=== PATIENT | male | born 1985 | race Caucasian/White ===

== ENCOUNTER 2016-08-07 20:15 | Emergency (ER) | payer OTHER ==
[2016-08-07 20:42] VITALS: BP 123/91; PULSE 99; RESP 18; TEMP 98.6; O2SAT 96
--- NOTE | 2016-08-07 21:01 | EDPHY ---
H & P Stated Complaint: left shoulder injury- poss dislocation HPI/ROS: HPI CHIEF COMPLAINT: Left shoulder injury HISTORY OF PRESENT ILLNESS: This patient very pleasant 31-year-old male presents emergency room with left shoulder pain and swelling. Patient states he was playing ultimate Frisbee he went out for the outstretched left hand to catch a Frisbee and developed left shoulder pain. Denies any other areas of trauma. This patient has tenderness palpation over the left AC joint. Distally neurovascular intact good cap refill, good escrow manager strength, good pulse. Past Medical History: No medical history Past Surgical History: No surgical history Social History: Denies daily use of drugs alcohol tobacco products Family History: Noncontributory ROS REVIEW OF SYSTEMS: A comprehensive 10 point review of systems is otherwise negative aside from elements mentioned in the history of present illness. Exam Constitutional triage nursing summary reviewed, vital signs reviewed, awake/ alert. Eyes normal conjunctivae and sclera, EOMI, PERRLA. HENT normal inspection, atraumatic, moist mucus membranes, no epistaxis, neck supple/ no meningismus, no raccoon eyes. Respiratory clear to auscultation bilaterally, normal breath sounds, no respiratory distress, no wheezing. Cardiovascular rate normal, regular rhythm, no murmur, no edema, distal pulses normal. Gastrointestinal soft, non-tender, no rebound, no guarding, normal bowel sounds, no distension, no pulsatile mass. Genitourinary no CVA tenderness. Musculoskeletal left shoulder: Axillary nerve is intact, tender palpation over the left AC joint with swelling, full range of motion left shoulder, distally neurovascular intact good caught up refill, good pulse, good escrow manager strength. no midline vertebral tenderness, full range of motion, no calf swelling, no tenderness of extremities, no meningismus, good pulses, neurovascularly intact. Skin pink, warm, & dry, no rash, skin atraumatic. Neurologic awake, alert and oriented x 3, AAOx3, moves all 4 extremities equally, motor intact, sensory intact, CN II-XII intact, normal cerebellar, normal vision, normal speech. Psychiatric normal mood/affect. Heme/Lymph/Immune no lymphadenopathy. Differential Diagnosis: Includes but is not limited to in a particular order, AC joint separation, left shoulder strain, clavicle fracture, shoulder dislocation Medical Decision Making: Plan for this patient x-ray left shoulder. Ice pack, sling. Re-evaluation: ED x-ray left shoulder: This shows a clavicle fracture. Displacement present. Not open. ED x-ray left clavicle: Shows a clavicle fracture. 2139: This patient be placed in a sling. Ice pack. Close orthopedic follow- up. Covel for pain. He is neurovascularly intact. Source: Patient - Personal History Current Tetanus Diphtheria and Acellular Pertussis (TDAP): Unsure - Medical/Surgical History Hx Asthma: No Hx Chronic Respiratory Disease: No Hx Diabetes: No Hx Cardiac Disease: No Hx Renal Disease: No Hx Cirrhosis: No Hx Alcoholism: No Hx HIV/AIDS: No Hx Splenectomy or Spleen Trauma: No - Social History Smoking Status: Light smoker Constitutional: Initial Vital Signs Temperature (C) 37 C 08/07/16 20:40 Heart Rate 99 08/07/16 20:40 Respiratory Rate 18 08/07/16 20:40 Blood Pressure 123/91 H 08/07/16 20:40 O2 Sat (%) 96 08/07/16 20:40 O2 Delivery Mode Room Air Allergies/Adverse Reactions: No Known Allergies Allergy (Verified 08/07/16 20:39) Home Medications: Medication Instructions Recorded Hydrocodone/APAP 5/325 [Covel 1 - 2 tab PO Q4H PRN #10 tab 08/07/16 5/325] Medical Decision Making - Diagnostics Imaging Results: Imaging Impressions Shoulder X-Ray 08/07/16 20:57 Impression: Unusual fracture of the distal left clavicle, acute. Departure - Departure Disposition: Home, Routine, Self-Care Clinical Impression: Clavicle fracture Qualifiers: Encounter type: initial encounter Clavicle location: unspecified part of clavicle Fracture type: closed Fracture alignment: displaced Laterality: left Qualified Code(s): S42.002A - Fracture of unspecified part of left clavicle, initial encounter for closed fracture Condition: Good Instructions: Musculoskeletal Pain (ED), Clavicle Fracture (ED) Additional Instructions: 1. Please ice your shoulder. 2. Take pain medicine as needed for acute pain control. 3. Stay in your sling. 4. Follow up with Orthopedics. Referrals: NONE *PRIMARY CARE P,. [Primary Care Provider] - As per Instructions Fabi Le MD [Medical Doctor] - As per Instructions Prescriptions: Hydrocodone/APAP 5/325 [Covel 5/325] 1 - 2 tab PO Q4H PRN #10 tab PRN Reason: Pain, Moderate
[2016-08-07] MEDS ORDERED: HYDROCOD/APAP 5/325 PREPACK#6 BTL TAKEHOME ONE ×2 (21:48→21:49)
== END 2016-08-07 22:05 | disposition home or self-care (01) ==
DX: S42.002A Fracture of unspecified part of left clavicle, initial encounter for closed fracture (principal); F17.200 Nicotine dependence, unspecified, uncomplicated; X58.XXXA Exposure to other specified factors, initial encounter; Y99.8 Other external cause status; Y93.74 Activity, frisbee
CPT/HCPCS: A4565